=== PATIENT | male | born 1990 | race Caucasian/White ===

== ENCOUNTER 2017-12-03 15:40 | Emergency (ER) | payer BC ==
[~2017-12-03] VITALS: Ht 175.3 cm; Wt 90.4 kg
[2017-12-03 15:56] VITALS: BP 136/74
[2017-12-03] MEDS ORDERED: IBUP-1984 PO (16:48)
== END 2017-12-03 17:15 | disposition home or self-care (01) ==
LOC: ER 15:41
DX: S66.911A Strain of unspecified muscle, fascia and tendon at wrist and hand level, right hand, initial encounter (principal); Z79.899 Other long term (current) drug therapy; X50.1XXA Overexertion from prolonged static or awkward postures, initial encounter; Y93.89 Activity, other specified; Y92.89 Other specified places as the place of occurrence of the external cause; Y99.8 Other external cause status
CPT/HCPCS: 29125; 73110; 99284